=== PATIENT | male | born 1995 | race Two or more races ===

== ENCOUNTER 2023-04-27 12:44 | Outpatient (REF) | payer OTHER, SELFPAY ==
[2023-04-27 16:15] LABS: Estimated Average Glucose 94 mg/dL; Hemoglobin A1c % 4.9 % (<6.0)
[2023-04-27 16:26] LABS: Alanine Aminotransferase 98 U/L (0-40); Albumin Level 4.4 g/dL (3.5-5.0); Alkaline Phosphatase 79 U/L (39-117); Anion Gap 14 (12-20); Aspartate Amino Transferase 38 U/L (5-37); Bilirubin Total 0.7 mg/dL (0.0-1.0); Blood Urea Nitrogen 10 mg/dL (9-16); Calcium 10.5 mg/dL (8.4-10.2); Carbon Dioxide 25 mmol/L (22-29); Chloride 105 mmol/L (96-108); Cholesterol 205 mg/dL (<200); Estimated Glomerular Filt Rate > 60; Glucose Random 83 mg/dL (60-115); HDL Cholesterol 29 mg/dL (>40); LDL Cholesterol Calculated 102 mg/dL (<100); Potassium 3.7 mmol/L (3.3-5.1); Sodium 140 mmol/L (135-145); Total Protein 7.8 g/dL (6.5-8.0); Triglycerides 372 mg/dL (<150)
== END 2023-04-27 12:45 | disposition home or self-care (01) ==
LOC: HO.HHCL 12:44
PROVIDERS: Visit Provider General Practice
DX: Z13.89 Encounter for screening for other disorder (principal)
CPT/HCPCS: 36415; 80053; 80061; 83036; 84443

== ENCOUNTER 2023-09-02 10:09 | Outpatient (REF) | payer OTHER, SELFPAY ==
--- NOTE | ~2023-09-02 | XR_ITS ---
EXAMINATION: XR SHOULDER, LEFT CLINICAL INFORMATION: Pain in left shoulder COMPARISON: None available. TECHNIQUE: AP neutral, scapular Y, and axillary views of the left shoulder. FINDINGS: The bones are intact. No fracture. Glenohumeral and acromioclavicular alignment is anatomic with normal joint space. No abnormal soft tissue calcifications. XR/XR shoulder LT min 2V IMPRESSION: No bony abnormality.
== END 2023-09-02 10:10 | disposition home or self-care (01) ==
LOC: HO.HOSX 10:09
PROVIDERS: Visit Provider Physician Assistant
DX: M75.22 Bicipital tendinitis, left shoulder (principal)
CPT/HCPCS: 73030

== ENCOUNTER 2023-09-02 13:31 | Outpatient (AMB) | payer OTHER, SELFPAY ==
[2023-09-02 13:58] VITALS: BMI 38.7
--- NOTE | 2023-09-02 13:58 | MHC.OFFVIS ---
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 Patient reports pain has been presents for about a 1.5 months that came on suddenly, denies injury. He noticed his pain presented after he started a diet. States his pain has been increasing and is worse in the mornings. He describes his pain as a sharp stabbing as well as numbness in the mornings from sleeping on his shoulder. No previous tx. 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 He reports his pain presented after he started a diet to cut fats. He states he has worsening sharp stabbing pain in his left shoulder which is aggravated in the mornings, overhead reaching putting weight on his shoulder and when working out at gym. He also c/o numbness and tingling in the mornings from sleeping on his shoulder which occasional radiates down to his hand and fingers. He denies any crunching, grinding, or popping at gym as well as weakness with lifting objects. He denies any previous injury and has not had any treatment in the past. His job requires a lot of manual work with his hands. 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 Review of Systems Const All systems reviewed & are unremarkable except as noted in HPI and below Physical Exam Vital Signs: BMI result Body Mass Index 38.7 Const General: cooperative, healthy appearing, comfortable, no acute distress, well developed and alert Orientation/consciousness: patient oriented x3 HEENT Head: Yes normal to inspection, Yes normocephalic and Yes atraumatic Eyes General: appearance normal, both eyes and all related structures Resp Effort & Inspection: normal respiratory effort and able to speak in complete sentences Cardio Rate: regular rate Peripheral pulses: Peripheral pulses 2+ throughout GI Palpation (GI): Soft to palpation Skin Lesions: no lesions Rashes: no rashes Neuro General: patient oriented x3 Extrem Other: Left shoulder normal to inspection. Tenderness over the bicipital groove and along the deltoid region of the shoulder. Forward flexion to 175, external rotation to 90, internal rotation to S1. 5/5 RTC strength. Positive O'Briens. NVI. Results Reviewed Results Reviewed: Xrays were obtained in the office today and personally reviewed by me of the left shoulder show type 2 acromion Assessment & Plan Assessment & Plan (1) Biceps tendonitis on left: Code(s): M75.22 - Bicipital tendinitis, left shoulder Plan We discussed options which include PT, NSAIDs and injections. The patient will defer on the injection today and proceed with PT and NSAIDs. If symptoms persist, the patient will contact me for an injection, otherwise, PRN. Orders: Orders XR shoulder LT min 2V Today M25.512 - Pain in left shoulder PT Evaluation and Treatment Today M75.22 - Bicipital tendinitis, left shoulder Patient Instructions: Scribed for Lito Rao PA-C, by Charbel Barbosa medical record librarians teacher, on 09/02/2023 at 2:00 PM EST. I, Lito Rao PA-C, have personally reviewed and agree with the information entered by the scribe. Coding Level of Care Code New Pt Level 3 (96169) Diagnoses Biceps tendonitis on left M75.22
== END 2023-09-02 14:23 | disposition home or self-care (01) ==
PROVIDERS: Visit Provider Physician Assistant
DX: M75.22 Bicipital tendinitis, left shoulder (principal)
CPT/HCPCS: 99203

== ENCOUNTER 2023-11-17 16:00 | Outpatient (RCR) | payer OTHER, SELFPAY ==
--- NOTE | 2023-09-23 13:17 | MHC.PT.EP ---
[facility] [place] Office [place] Office [place] Office [address] [phone] F: [phone] F: [phone] F: [phone] F: [phone] Physical Therapy Plan of Care Date of Evaluation: 09/22/23 Date of Surgery: Diagnosis: LEFT Shoulder biciptal tendinitis (MD Dx) Assessment: Patient is a pleasant 27 y.o. male who is referred to PT by Lito Rao PA-C with Dx of LEFT shoulder biciptal tendinitis. PT diagnosis is LEFT shoulder subacromial impingement syndrome. Patient impairments include pain, weakness/muscle imbalances in shoulder girdle, poor postures. Patient current functional limitations are putting on shirts and jackets, showering, sleeping (numbness when sleeping on L side), reaching overhead and arm out into flexion/abd, reaching across body, reaching behind body, any overhead lifting. Patient will benefit from skilled PT to address aforementioned impairments and functional limitations to meet established goals. Frequency and Duration: The patient will be seen 2x/week for 4 weeks Short Term Goals: 2 weeks Patient demonstrates consistency and independence with HEP to self manage symptoms. 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 Patient presents with increased L shoulder middle and lower trap strength 4+/5 to improve posture to reach overhead without sxs Treatment Plan: Modalities to reduce pain, spasms and effusion. Manual therapy to restore motion and function. Therapeutic exercise to improve strength and flexibility. Neuromuscular re-education for posture and balance. Therapeutic activities to return to functional activities of daily living. Electronically signed by: Marcia Cheung, PT, DPT Please sign and return to therapist. Thank you for your referral.
--- NOTE | 2023-11-19 10:04 | MHC.PT.DC ---
[facility] [place] Office [place] Office [place] Office [address] [phone] F: [phone] F: [phone] F: [phone] F: [phone] Physical Therapy Discharge Report Diagnosis: LEFT Shoulder biciptal tendinitis ( Dx) Date of Surgery: Date of Evaluation: 09/22/23 Date of Discharge: 11/19/23 Treatments to Date: 11 Cancellations to Date: No Shows to Date: Discharge Status: Achieved Goals Improved Function Independent with HEP Discharge Summary: Nicanor comes to his last therapy session today and continued his current exercise plan with good form throughout and no onset discomfort. AROM normal all movements L shoulder. Strength in L shoulder 5/5. We educated him on importance on following his HEP and listening to his body and if something is bothersome don't continue it. Nicanor showed significant improvement noted with his SPADI. Electronically signed by: Marcia Cheung, PT, DPT Please sign and return to therapist. Thank you for your referral.
== END 2023-11-19 10:05 | disposition home or self-care (01) ==
LOC: HO.PT 16:00
PROVIDERS: PCP General Practice; Visit Provider Physician Assistant
DX: M75.22 Bicipital tendinitis, left shoulder (principal)
CPT/HCPCS: 97033; 97110; 97161; 97530

== ENCOUNTER 2024-01-12 15:45 | Outpatient (REF) | payer OTHER, SELFPAY ==
[2024-01-13 08:54] LABS: HBS Num1 2.64 mIU/mL (0-7.99); Hepatitis A Antibody IgM 0.17 Index (0-0.79); Hepatitis B Core Antibody Nonreactive (Nonreactive); Hepatitis B Surface Antigen Negative (Negative); ~HepC Num1 0.12 S/CO (0.00-0.79); ~Hepatitis A Antibody IgM Nonreactive (Nonreactive); ~Hepatitis B Surface Antibody NONREACTIVE (Nonreactive); ~Hepatitis C Antibody Nonreactive (Nonreactive)
[2024-01-15 23:53] LABS: TS Negative Control Passed; TS Panel A 0; TS Panel B 0; TS Positive Control Passed; TSpotTB Negative (Negative)
== END 2024-01-12 15:46 | disposition home or self-care (01) ==
LOC: HO.CHCLDS 15:45
PROVIDERS: Visit Provider General Practice
DX: Z00.00 Encounter for general adult medical examination without abnormal findings (principal); Z11.1 Encounter for screening for respiratory tuberculosis
CPT/HCPCS: 36415; 86481; 86704; 86706; 86709; 86787; 86803; 87340

== ENCOUNTER 2024-02-10 09:42 | Outpatient (REF) | payer OTHER, SELFPAY ==
[2024-02-12 02:09] LABS: Rubella IgG Antibody 1.91 Index
== END 2024-02-10 09:43 | disposition home or self-care (01) ==
LOC: HO.CHCLDS 09:42
PROVIDERS: Visit Provider General Practice
DX: Z00.00 Encounter for general adult medical examination without abnormal findings (principal)
CPT/HCPCS: 36415; 86735; 86762; 86765

== ENCOUNTER 2024-02-25 10:35 | Outpatient (REF) | payer OTHER, SELFPAY ==
[2024-02-25 14:46] LABS: MANUAL DIFF FLAG NO
[2024-02-25 14:57] LABS: Basophils Percent Auto 0.4 % (0-2); Eosinophils Absolute Auto 0.1 X10*3/uL (0.0-0.4); Eosinophils Percent Auto 1.3 % (0-4); Hematocrit 47.5 % (42.0-52.0); Hemoglobin 16.5 g/dl (14.0-18.0); Imm Gran Abs Auto 0.01 X10*3/uL (0.00-0.03); Imm Gran Pct Auto 0.2 % (0.0-0.4); Lymphocytes Absolute Auto 1.8 X10*3/uL (1.2-4.9); Lymphocytes Percent Auto 32.1 % (20-40); Mean Corpuscular HGB Conc 34.7 g/dl (31.0-36.0); Mean Corpuscular Hemoglobin 29.9 pg (27.0-33.0); Mean Corpuscular Volume 86.2 fL (80.0-98.0); Mean Platelet Volume 10.3 fL (9.4-12.4); Monocytes Absolute Auto 0.5 X10*3/uL (0.1-1.2); Monocytes Percent Auto 9.9 % (2-11); Neutrophils Absolute Auto 3.1 x10*3/uL (2.0-8.3); Neutrophils Percent Auto 56.1 % (45-73); Platelet Count 309 X10*3/uL (160-400); Red Blood Count 5.51 X10*6/uL (4.60-5.80); Red Cell Distribution Width 12.5 % (11.0-16.0); White Blood Count 5.5 X10*3/uL (4.8-10.8)
[2024-02-25 15:09] LABS: Anion Gap 11 (12-20); Blood Urea Nitrogen 20 mg/dL (9-16); Calcium 10.2 mg/dL (8.4-10.2); Carbon Dioxide 27 mmol/L (22-29); Chloride 104 mmol/L (96-108); Estimated Glomerular Filt Rate > 60; Glucose Random 82 mg/dL (60-115); Sodium 138 mmol/L (135-145)
== END 2024-02-25 10:36 | disposition home or self-care (01) ==
LOC: HO.CHCLDS 10:35
PROVIDERS: Visit Provider Internal Medicine
DX: K92.1 Melena (principal)
CPT/HCPCS: 36415; 80048; 85025

== ENCOUNTER 2024-07-08 09:38 | Outpatient (REF) | payer OTHER, SELFPAY ==
[2024-07-11 17:38] LABS: Rubella IgG Antibody 5.25 Index
== END 2024-07-08 09:39 | disposition home or self-care (01) ==
LOC: HO.CHCLDS 09:38
PROVIDERS: Visit Provider General Practice
DX: Z23 Encounter for immunization (principal); Z01.84 Encounter for antibody response examination
CPT/HCPCS: 36415; 86735; 86762; 86765

== ENCOUNTER 2024-10-24 13:28 | Outpatient (REF) | payer OTHER, SELFPAY ==
[2024-10-24 14:24] LABS: MANUAL DIFF FLAG NO
[2024-10-24 14:36] LABS: Basophils Percent Auto 0.5 % (0-2); Eosinophils Absolute Auto 0.2 X10*3/uL (0.0-0.4); Eosinophils Percent Auto 3.3 % (0-4); Hematocrit 44.7 % (42.0-52.0); Hemoglobin 16.2 g/dl (14.0-18.0); Imm Gran Abs Auto 0.02 X10*3/uL (0.00-0.03); Imm Gran Pct Auto 0.3 % (0.0-0.4); Lymphocytes Absolute Auto 1.9 X10*3/uL (1.2-4.9); Lymphocytes Percent Auto 32.6 % (20-40); Mean Corpuscular HGB Conc 36.2 g/dl (31.0-36.0); Mean Corpuscular Hemoglobin 30.5 pg (27.0-33.0); Mean Corpuscular Volume 84.2 fL (80.0-98.0); Mean Platelet Volume 10.3 fL (9.4-12.4); Monocytes Absolute Auto 0.5 X10*3/uL (0.1-1.2); Monocytes Percent Auto 9.4 % (2-11); Neutrophils Absolute Auto 3.1 x10*3/uL (2.0-8.3); Neutrophils Percent Auto 53.9 % (45-73); Platelet Count 285 X10*3/uL (160-400); Red Blood Count 5.31 X10*6/uL (4.60-5.80); Red Cell Distribution Width 11.9 % (11.0-16.0); White Blood Count 5.8 X10*3/uL (4.8-10.8)
--- OUTSIDE RECORDS SUMMARY | 2024-10-24 15:11 | XMS_ITS | Encounter Summary ---
Author Organization [employer] Address [address] [facility] 7t [place] [address] Care Team Providers Care Premium Service Representative Name Role Phone Meagan Frias MD Primary Care Provider [phone] Encounter Details Date Type Department Care Team (Late st Contact Info) Description 04/29/2023 Orders Only [facility] MEDICINE [address] [place], [place] [phone] Meagan Frias MD [address] [place], [place] [phone] Social History Tobacco Use Types Packs/Day Years Used Date Smoking Tobacco: Never Smokeless Tobacco: Never Alcohol Use Standard Drinks/Week Comments Never 0 (1 standard drink = 0.6 oz pur e alcohol) Depression Answer Date Recorded Patient Health Questionnaire-2 Score 0 04/24/2023 Sex and Gender Information Value Date Recorded Sex Assigned at Male 03/12/2023 11:44 AM EDT Legal Sex Male 11:43 AM EDT Gender Identity Male 03/12/2023 11:44 AM EDT Sexual Orientation Straight 03/12/2023 11 :44 AM EDT documented as of this encounter Miscellaneous Notes * Result Encounter Note - Meagan Frias MD - 04/29/2023 1:36 PM EDT Please offer vaccine appointment for Hep A and Hep B, his blood shows that he is not immune to these pathogens. His TB test was negative, if he needs that for work/school, we can give him a copy of those results. Thank you documented in this encounter Plan of Treatment Not on file documented as of this encounter Procedures Procedure Name Priority Date/Time Associated Diagnosis Comments MEASLES, MUMPS, AND RUBELLA (MMR) AB (IGG) PANEL, IMMUNE STATUS Routine 02/10/2024 9:44 AM EDT T-SPOT(R).TB Routine 01/12/2024 3:47 PM EDT HEPATITIS PANEL, GENERAL Routine 01/12/2024 3:47 PM EDT VARICELLA ZOSTER ANTIBODY, IGG Routine 01/12/2024 3:47 PM EDT documented in this encounter Results * (ABNORMAL) Measles, Mumps, and Rubella (MMR) Antibodies??(IgG) Panel, Immune Status (02/10/2024 9:44 AM EDT) Pathologist [facility] [place] Mumps Virus IgG Antibody 10.40(A) AU/mL [facility] Comment:AU/mL Interpretation ------- <9.00 Not consistent with immunity9.00-10.99 Equivocal>10.99 Consistent with immunityThe presence of mumps IgG antibody suggests immunizationor past or current infection with mumps virus. Rubella IgG Antibody 1.91 Index [facility] Comment:Index Interpretation ----- <0.90 Not consistent with immunity 0.90-0.99 Equivocal > or = 1.00 Consistent with immunityThe presence of rubella IgG antibody suggestsimmunization or past or current infection withrubella virus.THIS TEST WAS PERFORMED AT:[facility] [place] [phone] PAEZ MD Rubeola IgG (Measles) 18.70 AU/mL [facility] Comment:AU/mL Interpretation ----- <13.50 Not consistent with .50-16.49 Equivocal>16.49 Consistent with immunityThe presence of measles IgG suggests immunization orpast or current infection with measles virus.For additional information, please refer tohttp://education.[employer]/faq/NEQ849(This link is being provided for informational/educational purposes only.) 02/10/2024 9:44 AM EDT 02/10/2024 2:10 PM EDT us Meagan Frias MD LAB BLOOD ORDERABLES Final Res ult [facility] [address] [place] [address] [phone] * T-SPOT??.TB (01/12/2024 3:47 PM EDT) [facility] T Spot TB Negative Negative [facility] Comment:A negative test resu lt does not exclude the possibilityof exposure to or infection with Mycobacteriumtuberculosis (M. tuberculosis). Patients with recentexposure to TB infected individuals exhibiting anegative T-SPOT.TB result should be considered forretesting within 6 weeks or if other relevant clinicalsymptoms indicate. Results from T-SPOT.TB testing mustbe used in conjunction with each individual'sepidemiological history, current medical status,and results of other diagnostic evaluations.The T-SPOT.TB test is qualitative and results arereported as positive, borderline, or negative, giventhat the test controls perform as expected. In linewith the Centers for Disease Control and Prevention's2010 recommendation to report quantitative measurementsalongside the qualitative result, the laboratoryprovides spot counts for informational purposes only.The T-SPOT.TB test should not be interpreted as aquantitative test. TS PANEL A 0 [facility] TS PANEL B 0 [facility] Negative Control Passed [facility] Positive Control Passed [facility] Comment:For additional infor mation, please refer tohttp://education.[employer]/faq/HAK068(This link is being provided for informational/educational purposes only.)THIS TEST WAS PERFORMED AT:[id number] [place] [address]OMIXTEESOPHIA EDMONDS MD,PHD 01/12/2024 3:47 PM EDT 01/12/2024 5:59 PM EDT Meagan Frias MD LAB BLOOD ORDERABLES Final Res ult Performing Organization Address [facility] Co de Phone Number [facility] [address] [place] [address] [phone] * Varicella zoster antibody, IgG (01/12/2024 3:47 PM EDT) Pathologist [facility] [place] Varicella IgG Antibody 2888.00 index [facility] Comment:Index Interpretation --------- <135.00 Negative - Antibody not detected 135.00 - 164.99 Equivocal > or = 165.00 Positive - Antibody detected A positive result indicates that the patient has antibody to VZV but does not differentiate between an active or past infection. The clinical diagnosis must be interpreted in conjunction with the clinical signs and symptoms of the patient. This assay reliably measures immunity due to previous infection but may not be sensitive enough to detect antibodies induced by vaccination. Thus, a negative result in a vaccinated individual does not necessarily indicate susceptibility to VZV infection. A more sensitive test for vaccination-induced immunity is Varicella Zoster Virus Antibody Immunity Screen, ACIF.THIS TEST WAS PERFORMED AT:[facility] [place] [phone] PAEZ MD 01/12/2024 3:47 PM EDT 01/12/2024 5:59 PM EDT eMagan Frias MD LAB BLOOD ORDERABLES Final Res ult Performing Organization Address [facility]/ZIP Co de Phone Number [facility] [address] [place] [address] [phone] * Hepatitis Panel, General (01/12/2024 3:47 PM EDT) [facility] Hepatitis A IgM Nonreactive Nonreactive [facility] Comment:IgM antibodies to CARLISLE V not detected; does not exclude earlyacute or recovered HAV infection. ~Hepatitis B Surface Antibody NONREACTIVE Nonreactive [facility] Comment:Nonreactive: < 8.00 mIU/mL Hepatitis B Core Antibody Nonreactive Nonreactive [facility] Hepatitis C Antibody Nonreactive Nonreactive [facility] Comment:Antibodies to HCV no t detected; does not exclude early acuteHCV infection. Hepatitis B Surface Ag Negative Negative [facility] 01/12/2024 3:47 PM EDT 01/12/2024 5:59 PM EDT us Meagan Frias MD LAB BLOOD ORDERABLES Final Res ult [facility] [address] [place] [address] [phone] documented in this encounter Visit Diagnoses Not on filedocumented in this encounter Care Teams Premium Service Representative Relationship Specialty Start Date End Date Meagan Frias MD [address] [place] [phone] PCP - General Family Medicine 04/24/23 documented as of this encounter
--- OUTSIDE RECORDS SUMMARY | 2024-10-24 15:11 | XMS_ITS | Encounter Summary ---
Author Organization [employer] Address [address] [facility] [address]t [place] [address] Care Team Providers Care Food Mobile Driver Name Role Phone Meagan Frias MD Primary Care Provider [phone] Encounter Details Date Type Department Care Team (Late st Contact Info) Description 05/01/2023 Abstract [facility] MEDICINE [address] [place], [place] [phone] Meagan Frias MD [address] [place], [place] [phone] Social History Tobacco Use Types Packs/Day Years [...] AM EDT documented as of this encounter Plan of Treatment Not on file documented as of this encounter Visit Diagnoses Not on filedocumented in this encounter Care Teams Food Mobile Driver Relationship Specialty Start Date End Date Meagan Frias MD [address] [place], [place] [phone] PCP - General Family Medicine 04/24/23 documented as of this encounter
--- OUTSIDE RECORDS SUMMARY | 2024-10-24 15:11 | XMS_ITS | Encounter Summary ---
Author Organization [employer] Address [address] [facility] [address] [place] [address] Care Team Providers Care Clean Room Technician Name Role Phone Meagan Frias MD Primary Care Provider [phone] Reason for Visit * Reason Onset Date Comments Returning call 10/30/2023 Encounter Details Date Type Department Care Team ([facility] st Contact Info) Description 10/30/2023 Telephone [facility] MEDICINE [address] [place] [address] Meagan Frias MD [address] [place], [place] [phone] Returning call Social History Tobacco Use Types Packs/Day Years Used Date Smoking Tobacco: Never Smokeless Tobacco: Never Alcohol Use Standard Drinks/Week Comments Never 0 (1 standard drink = 0.6 oz pur e alcohol) Housing Stability Answer Date Recorded What is your housing situation today? I have jeff salas 06/16/[address] you li ve. Do you have problems with any of the following? None of the above 06/16/2023 Food Insecurity Answer Date Recorded Within the past 12 months, y ou worried that your food would run out before you got money to buy more: Never True 06/16/2023 Within the past 12 months,th e food you bought just didn't last and you didn't have enough money to get more: Never True Transportation Answer Date Recorded In the past 12 months, has l ack of transportation kept you from medical appts, meetings, work or from getting things needed for daily living? Yes, it has kept me from medical appointments or getting medications. 05/25/2023 Utilities Answer Date Recorded In the past 12 months, has t he electric, gas, oil or water company threatened to shut off services in your home? No 06/16/2023 Depression Answer Date Recorded Patient Health Questionnaire-2 Score 0 04/24/2023 Sex and Gender Information Value Date Recorded Sex Assigned at Male 03/12/2023 11:44 AM EDT Legal Sex Male 11:43 AM EDT Gender Identity Male 03/12/2023 11:44 AM EDT Sexual Orientation Straight 03/12/2023 11 :44 AM EDT documented as of this encounter Miscellaneous Notes * Telephone Encounter - Ilan Deng - 10/30/2023 11:21 AM EDT Tc from pt stated received a call possibly regarding yesterday's visit with Dr. Vazquez, continuity writer didn't see anything tasked. documented in this encounter Plan of Treatment Not on file documented as of this encounter Visit Diagnoses Not on filedocumented in this encounter Care Teams Clean Room Technician Relationship Specialty Start Date End Date Meagan Frias MD [address] [place] [phone] PCP - General Family Medicine 04/24/23 documented as of this encounter
--- OUTSIDE RECORDS SUMMARY | 2024-10-24 15:11 | XMS_ITS | Clinical Summary ---
Author Organization [employer] Address [address] [facility] [address] [place] [address] Care Team Providers Care Agile Scrum Coach Name Role Phone Meagan Frias MD Primary Care Provider Allergies No known active allergies Medications omega-3 (Fish Oil) 1000 MG capsule TAKE 1 CAPSULE (500 MG) BY MOUTH IN THE MORNING. 90 capsule 3 04/29/2023 Active Blood Pressure Monitoring (Adult Blood Pressure Cuff Lg) kitIndications: Elevated blood pressure reading 1 each in the morning. 1 kit 09/25/2023 Active losartan (Cozaar) 25 MG tablet Take 1 tablet (25 mg) by mouth in the morning. 30 tablet 11 10/29/2023 Active Multiple Vitamins-Minera ls (B complex-vitamin C-vitamin E-zinc) tablet Take 1 tablet by mouth Once per day. Active Active Problems Problem Noted Date Diagnosed Date Other fatigue 10/24/2024 Elevated blood pressure reading 09/29/2023 Assessment & Plan (09/29/2023 9:40 PM EST): BP monitor sent to pharmacy To check every few days, if readings are consistently >140/90, to notify triage nurse so that we can start NADINE or CCB Pain in left acromioclavicular joint 08/12/2023 Assessment & Plan (08/12/2023 4:34 PM EST): AC joint pain with decr internal rotation, send to ortho and order X ray. Scheduled f/up with PCP. If symptoms not improving and he does indeed do PT, we can consider MRI imaging of his rotator cuff. Flexural eczema 04/24/2023 Assessment & Plan (04/24/2023 12:48 PM EDT): Triamcinolone mixed with emollient cream Class 2 obesity in adult 04/24/2023 Routine history and physical examination of adul t 04/24/2023 Assessment & Plan (04/24/2023 12:50 PM EDT): Screen for DM2 based on symptoms, exam findings, and FH (mother) Screen for dyslipidemia, thyroid based on weight Encounters Date Type Department Care Team Description 10/24/2024 1:00 PM EDT Office Visit [facility] [address] [place] [address] Juwan Bustos MD Primary hypertension (Primary Dx); Other fatigue; Dietary counseling; Exercise counseling; Class 3 severe obesity due to excess calories with serious comorbidity and body mass index (BMI) of 40.0 to 44.9 in adult ([facility]) 10/24/2024 Travel from Last 3 Months Immunizations Name Administration Dates Next Due Hep B, adult 01/15/2024 MMR 04/05/2024 Pfizer Covid-19 Vaccine 12+ 01/15/2024 Tdap 01/21/2024 Social History Tobacco Use Types Packs/Day Years Used Date Smoking Tobacco: Never Smokeless Tobacco: Never Tobacco Cessation:Counseling Given: Not Answered Alcohol Use Standard Drinks/Week Comments Never 0 [...] Orientation Straight 03/12/2023 11 :44 AM EDT Last Filed Vital Signs Vital Sign Reading Time Taken Comments Blood Pressure 149/70 10/24/2024 1:09 PM EDT Pulse 80 10/24/2024 1:09 PM EDT Temperature 36.7 ??C (98 ??F) 10/24/2024 1:09 PM EDT Respiratory Rate 20 10/24/2024 1:09 PM EDT Oxygen Saturation 98% 10/24/2024 1:09 PM EDT Inhaled Oxygen Concentration - - Weight 115 kg (253 lb) 10/24/2024 1:09 PM EDT Height 167.6 cm (5' 6 ) 10/24/2024 1:09 PM EDT Body Mass Index 40.84 10/24/2024 1:09 PM EDT Plan of Treatment Health Maintenance Due Date Last Done Comments HIV Screening 1994 Alcohol/Substance Use Screening 2006 Family Planning (PISQ) 2009 Hepatitis B Vaccines (2 of 3 - 19+ 3-dose series) 02/12/2024 01/15/2024 COVID-19 Vaccine (2 - 2023-2 5 season) 2024 01/15/2024 Influenza Vaccine (#1) 2024 06/14/2019 Depression Screening 04/24/2024 04/24/2023, 04/24/2023 SDOH Screening 04/24/2024 04/24/2023 Tobacco Screening 10/24/2025 10/24/2024 Lipid Panel 04/27/2028 04/27/2023 DTaP/Tdap/Td Vaccines (2 - T d or Tdap) 01/20/2034 01/21/2024 Zoster Vaccines (1 of 2) 2044 RSV Patients and Patients Aged 60 years or older (1 - 1-dose 75+ series) 2069 Pneumococcal Vaccine: Pediatrics (0 to 5 Years) and At-Risk Patients (6 to 49) Years) Aged Out 06/14/2019 No longer eligible b ased on patient's age to complete this topic Hepatitis C Screening Completed 01/12/2024 HIB Vaccines Aged Out No longer eligi ble based on patient's age to complete this topic HPV Vaccines Aged Out No longer eligi ble based on patient's age to complete this topic Hepatitis A Vaccines Aged Out No long er eligible based on patient's age to complete this topic IPV Vaccines Aged Out No longer eligi ble based on patient's age to complete this topic Meningococcal Vaccine Aged Out No rigoberto fredis eligible based on patient's age to complete this topic RSV under 20 months Aged Out No longe r eligible based on patient's age to complete this topic Rotavirus Vaccines Aged Out No longer eligible based on patient's age to complete this topic Procedures Procedure Name Priority Date/Time Associated Diagnosis Comments CBC WITH AUTO DIFFERENTIAL Routine 10/24/2024 1:30 PM EDT Primary hypertension Other fatigue HEPATITIS PANEL, GENERAL Routine 01/12/2024 3:47 PM EDT LIPID PANEL, STANDARD Routine 04/27/2023 12:50 PM EDT Class 2 obesity in adult, unspecified BMI, unspecified obesity type, unspecified whether serious comorbidity present from Last 3 Months or Most Recently Relevant to Health Maintenance Results * (ABNORMAL) CBC auto differential (10/24/2024 1:30 PM EDT) White Blood Count 5.8 4.8 - 10.8 X10*3/uL [facility] Red Blood Count 5.31 4.60 - 5.80 X10*6/uL [facility] Hemoglobin 16.2 14.0 - 18.0 g/dl [facility] Hematocrit 44.7 42.0 - 52.0 % [facility] Mean Corpuscular Volume 84.2 80.0 - 98.0 fL [facility] Mean Corpuscular Hemoglobin 30.5 27.0 - 33.0 pg [facility] Mean Corpuscular HGB Conc 36.2(H) 31.0 - 36.0 g/dl [facility] Red Cell Distribution Width 11.9 11.0 - 16.0 % [facility] Platelet Count 285 160 - 400 X10*3/uL [facility] Mean Platelet Volume 10.3 9.4 - 12.4 fL [facility] Neutrophils Percent Auto 53.9 45 - 73 % [facility] Imm Gran Pct Auto 0.3 0.0 - 0.4 % [facility] Lymphocytes Percent Auto 32.6 20 - 40 % [facility] Monocytes Percent Auto 9.4 2 - 11 % [facility] Eosinophils Percent Auto 3.3 0 - 4 % [facility] Basophils Percent Auto 0.5 0 - 2 % [facility] NRBC Pct Auto 0.0 0.0 - 0.2 /100WBC [facility] Neutrophils Absolute Auto 3.1 2.0 - 8.3 x10*3/uL [facility] Imm Gran Abs Auto 0.02 0.00 - 0.03 X10*3/uL [facility] Lymphocytes Absolute Auto 1.9 1.2 - 4.9 X10*3/uL [facility] Monocytes Absolute Auto 0.5 0.1 - 1.2 X10*3/uL [facility] Eosinophils Absolute Auto 0.2 0.0 - 0.4 X10*3/uL [facility] Basophils Absolute Auto 0.0 0.0 - 0.2 X10*3/uL [facility] NRBC Abs Auto 0.000 0.0 - 0.012 X10*3/uL [facility] Blood Venous blood specimen / Unknown 10/24/2024 1:30 PM EDT 10/24/2024 2:18 PM EDT us Juwan Bustos MD LAB BLOOD ORDERABLES Final Result [facility] [address] [place] [address] [phone] * Hepatitis Panel, General (01/12/2024 3:47 PM EDT) Hepatitis A IgM Nonreactive Nonreactive [facility] Comment:IgM antibodies to CARLISLE V not detected; does not exclude earlyacute or recovered HAV infection. ~Hepatitis B Surface Antibody NONREACTIVE Nonreactive [facility] Comment:Nonreactive: < 8.00 mIU/mL Hepatitis B Core Antibody Nonreactive Nonreactive [facility] Hepatitis C Antibody Nonreactive Nonreactive [facility] Comment:Antibodies to HCV no t detected; does not exclude early acuteHCV infection. Hepatitis B Surface Ag Negative Negative [facility] 01/12/2024 3:47 PM EDT 01/12/2024 5:59 PM EDT us Meagan Frias MD LAB BLOOD ORDERABLES Final Res ult [facility] [address] [place] [phone] * (ABNORMAL) Lipid Panel, Standard (04/27/2023 12:50 PM EDT) Triglycerides 372(H) <150 mg/dL [facility] Comment:Desirable Triglyceri de: less than 150 mg/dLBorderline High Triglyceride 150-199 mg/dLHigh Triglyceride: 200-499 mg/dLVery High Triglyceride: greater than or equal to 5OO mg/dL Cholesterol 205(H) <200 mg/dL [facility] Comment:Desirable Cholestero l: less than 200 mg/dLBorderline High Cholesterol: 200-239 mg/dLHigh Cholesterol: greater than 239 mg/dL LDL Cholesterol Calculated 102(H) <100 mg/dL [facility] Comment:Desirable LDL: less than 100 mg/dLNear Optimal/Above Optimal LDL: 110- 129 mg/dLBorderline High LDL: 130-159 mg/dLHigh LDL: 160-189 mg/dLVery High LDL: greater than or equal to 190 mg/dL HDL Cholesterol 29(L) >40 mg/dL [facility] Comment:Desirable HDL: great er than 40 mg/dL Note: This HDL assay may give artificially low results in patients with liver disease. Blood Venous blood specimen / Unknown 04/27/2023 12:50 PM EDT 04/27/2023 3:53 PM EDT us Meagan Frias MD LAB BLOOD ORDERABLES Final Res ult [facility] [address] [place] [phone] [phone] from Last 3 Months or Most Recently Relevant to Health Maintenance Insurance [facility] Care Teams Agile Scrum Coach Relationship Specialty Start Date End Date Meagan Frias MD [address] [place] [address] PCP - General Family Medicine 04/24/23
--- OUTSIDE RECORDS SUMMARY | 2024-10-24 15:11 | XMS_ITS | Encounter Summary ---
Author Organization [employer] Address [address] [facility] [place] [address] Care Team Providers Care French Cord Binder Name Role Phone Meagan Frias MD Primary Care Provider [phone] Encounter Details Date Type Department Care Team (Latest Contact Info) Description 10/24/2024 Travel Social History Tobacco Use Types Packs/Day Years [...] on filedocumented in this encounter Care Teams French Cord Binder Relationship Specialty Start Date End Date Meagan Frias MD [address] [place] [phone] PCP - General Family Medicine 04/24/23 documented as of this encounter
[2024-10-24 15:15] LABS: Magnesium 2.1 mg/dL (1.6-2.6)
[2024-10-24 15:23] LABS: TSH reflex Free T4 1.14 uIU/mL (0.32-4.0); Vitamin D 25-OH Total 19.4 ng/mL (>30)
[2024-10-24 15:44] LABS: Folate 9.6 ng/mL (> or = 4.0); Vitamin B12 1586 pg/mL (200-900)
[2024-10-31 23:44] LABS: Testosterone, Total 272 ng/dL (250-1100)
== END 2024-10-24 13:29 | disposition home or self-care (01) ==
LOC: HO.CHCLDS 13:28
PROVIDERS: Visit Provider Internal Medicine
DX: I10 Essential (primary) hypertension (principal); R53.83 Other fatigue
CPT/HCPCS: 36415; 82306; 82607; 82746; 83735; 84403; 84443; 85025

== ENCOUNTER 2024-10-25 10:50 | Outpatient (REF) | payer OTHER, SELFPAY ==
--- OUTSIDE RECORDS SUMMARY | 2024-10-25 13:13 | XMS_ITS | Encounter Summary ---
Author Organization [employer] Address [address] [facility] [address] [place] [address] Care Team Providers Care Residential Lawn Specialist Name Role Phone Meagan Frias MD Primary Care Provider [phone] Reason for Visit * Reason Onset Date Comments Returning call 10/30/2023 Encounter Details Date Type Department Care Team ([facility] st Contact Info) Description 10/30/2023 Telephone [facility] [address] [place] [address] Meagan Frias MD [address] [place], [place] [phone] Returning call Social History Tobacco Use Types Packs/Day Years Used Date Smoking Tobacco: Never Smokeless Tobacco: Never Alcohol Use Standard Drinks/Week Comments Never 0 (1 standard drink = 0.6 oz pur e alcohol) Housing Stability Answer Date Recorded What is your housing situation today? I have jeffsathya salas 06/16/[address] you [...] possibly regarding yesterday's visit with Dr. Vazquez, parts data writer didn't see anything tasked. documented in this encounter Plan of Treatment Not on file documented as of this encounter Visit Diagnoses Not on filedocumented in this encounter Care Teams Residential Lawn Specialist Relationship Specialty Start Date End Date Meagan Frias MD [address] [place] [phone] PCP - General Family Medicine 04/24/23 documented as of this encounter
--- OUTSIDE RECORDS SUMMARY | 2024-10-25 13:13 | XMS_ITS | Encounter Summary ---
Author Organization [employer] Address [address] [facility] [address] [facility] [address] [place] [address] Care Team Providers Care Physical Therapy Nurse Name Role Phone Meagan Frias MD Primary Care Provider [phone] Encounter Details Date Type Department Care Team [...] on filedocumented in this encounter Care Teams Physical Therapy Nurse Relationship Specialty Start Date End Date Meagan Frias MD [address] [place] [phone] PCP - General Family Medicine 04/24/23 documented as of this encounter
--- OUTSIDE RECORDS SUMMARY | 2024-10-25 13:13 | XMS_ITS | Encounter Summary ---
Author Organization [employer] Address [address] [facility] [address] [place] [address] Care Team Providers Care Technical Publications Manager Name Role Phone Meagan Frias MD Primary Care Provider [phone] Encounter Details Date Type Department Care Team (Late st Contact Info) Description 04/29/2023 Orders Only [facility] [address] [place], [place] [phone] Meagan Frias MD [address] [place], [place] [phone] Social History Tobacco Use Types Packs/Day Years [...] Immune Status (02/10/2024 9:44 AM EDT) Pathologist [facility] Mumps Virus IgG Antibody 10.40(A) AU/mL [facility] Comment:AU/mL Interpretation ------- <9.00 Not consistent with immunity9.00-10.99 Equivocal>10.99 Consistent with immunityThe presence of mumps IgG antibody suggests immunizationor past or current infection with mumps virus. Rubella IgG Antibody 1.91 Index [facility] Comment:Index Interpretation ----- <0.90 Not consistent with immunity 0.90-0.99 Equivocal > or = 1.00 Consistent with immunityThe presence of rubella IgG antibody suggestsimmunization or past or current infection withrubella virus.THIS TEST WAS PERFORMED AT:[employer] [place] [phone] PAEZ MD Rubeola IgG (Measles) 18.70 AU/mL [facility] Comment:AU/mL Interpretation ----- <13.50 Not consistent with ygzyvpns52.50-16.49 Equivocal>16.49 Consistent with immunityThe presence of measles IgG suggests immunization orpast or current infection with measles virus.For additional information, please refer tohttp://education.[employer]/faq/QRN390(This link is being provided for informational/educational purposes only.) 02/10/2024 9:44 AM EDT 02/10/2024 2:10 PM EDT us Meagan Frias MD LAB BLOOD ORDERABLES Final Res ult [facility] [address] [place] [address] [phone] * T-SPOT??.TB (01/12/2024 3:47 PM EDT) [facility] T Spot TB Negative Negative [facility] Comment:A negative test resu lt [...] as aquantitative test. TS PANEL A 0 [facility] TS PANEL B 0 [facility] Negative Control Passed [facility] Positive Control Passed [facility] Comment:For additional infor mation, please refer tohttp://education.[employer]/faq/CSF327(This link is being provided for informational/educational purposes only.)THIS TEST WAS PERFORMED AT:[employer] [place] [phone] EDMONDS MD,PHD 01/12/2024 3:47 PM EDT 01/12/2024 5:59 PM EDT Meagan Frias MD LAB BLOOD ORDERABLES Final Res ult Performing Organization Address [facility] Co de Phone Number [facility] [address] [place] [address] [phone] * Varicella zoster antibody, IgG (01/12/2024 3:47 PM EDT) Pathologist [facility] Varicella IgG Antibody 2888.00 index [facility] Comment:Index Interpretation --------- <135.00 Negative [...] Antibody Immunity Screen, ACIF.THIS TEST WAS PERFORMED AT:[facility] [place] [phone] PAEZ MD 01/12/2024 3:47 PM EDT 01/12/2024 5:59 PM EDT Meagan Frias MD LAB BLOOD ORDERABLES Final Res ult Performing Organization Address [facility]/ZIP Co de Phone Number [facility] [address] [place] [phone] * Hepatitis Panel, General (01/12/2024 3:47 PM EDT) [facility] Hepatitis A IgM Nonreactive Nonreactive [facility] Comment:IgM antibodies to CARLISLE V not detected; does not exclude earlyacute or recovered HAV infection. ~Hepatitis B Surface Antibody NONREACTIVE Nonreactive [facility] Comment:Nonreactive: < 8.00 mIU/mL Hepatitis B Core Antibody Nonreactive Nonreactive [facility] Hepatitis C Antibody Nonreactive Nonreactive [facility] Comment:Antibodies to HCV no t detected; does not exclude early acuteHCV infection. Hepatitis B Surface Ag Negative Negative [facility] 01/12/2024 3:47 PM EDT 01/12/2024 5:59 PM EDT us Meagan Frias MD LAB BLOOD ORDERABLES Final Res ult [facility] [address] [place] [phone] documented in this encounter Visit Diagnoses Not on filedocumented in this encounter Care Teams Technical Publications Manager Relationship Specialty Start Date End Date Meagan Frias MD [address] [place] [phone] PCP - General Family Medicine 04/24/23 documented as of this encounter
--- OUTSIDE RECORDS SUMMARY | 2024-10-25 13:13 | XMS_ITS | Clinical Summary ---
Author Organization [employer] Address [address] [facility] 7[address] [place] [address] Care Team Providers Care Lecturer In Marketing Name Role Phone Meagan Frias MD Primary Care Provider [phone] Allergies No known active allergies Medications omega-3 [...] Description 10/24/2024 1:00 PM EDT Office Visit [facility] [address] [place] [address] Juwan Bustos MD Primary hypertension (Primary Dx); Other fatigue; Dietary counseling; Exercise counseling; Class 3 severe obesity due to excess calories with serious comorbidity and body mass index (BMI) of 40.0 to 44.9 in adult ([facility]) 10/24/2024 Travel from Last 3 Months [...] Procedure Name Priority Date/Time Associated Diagnosis Comments VITAMIN B12/FOLATE, SERUM PANEL Routine 10/24/2024 1:50 PM EDT Primary hypertension Other fatigue MAGNESIUM Routine 10/24/2024 1:30 PM EDT Primary hypertension Other fatigue VITAMIN D,25-OH,TOTAL,IA Routine 10/24/2024 1:30 PM EDT Primary hypertension Other fatigue TSH W/REFLEX TO FT4 Routine 10/24/2024 1 :30 PM EDT Primary hypertension Other fatigue CBC WITH AUTO DIFFERENTIAL Routine 10/24/2024 1:30 PM EDT Primary hypertension Other fatigue HEPATITIS PANEL, GENERAL Routine 01/12/2024 3:47 PM EDT LIPID PANEL, STANDARD Routine 04/27/2023 12:50 PM EDT Class 2 obesity in adult, unspecified BMI, unspecified obesity type, unspecified whether serious comorbidity present from Last 3 Months or Most Recently Relevant to Health Maintenance Results * (ABNORMAL) Vitamin B12/Folate, Serum Panel (10/24/2024 1:50 PM EDT) Vitamin B12 1,586(H) 200 - 900 pg/mL [facility] Comment:NORMAL 200-900 PG/ML INDETERMINATE 160-199 PG/ML DEFICIENT < 160 PG/ML Folate 9.6 > or = 4.0 ng/mL [facility] Comment:Reference Values:> o r = 4.0 ng/mL< 4.0 ng/mL suggests folate deficiency Methotrexate, aminopterin and folinic acid(leucovorin) are chemotherapeutic agents whose molecularstructures are similar to folate; therefore, the Architectfolate assay cannot be used for patients using these drugs. Blood Venous blood specimen / Unknown 10/24/2024 1:50 PM EDT 10/24/2024 2:18 PM EDT us Juwan Bustos MD LAB BLOOD ORDERABLES Final Result [facility] [address] [place] [phone] * (ABNORMAL) Vitamin D, 25-Hydroxy, Total, Immunoassay (10/24/2024 1:30 PM EDT) Pathologist [facility] Vitamin D 25-OH Total 19.4(L) >30 ng/mL [facility] Comment:Health Based Referen ce Values*< 20 ng/mL Pzfldhqts31-59 ng/mL Insufficient> 30 ng/mL Sufficient*Gian VAZQUEZ. N Engl J Med. 2007;357:266-280Care must be taken in interpreting Vitamin D results fromdifferent laboratories and methodologies. Published datademonstrated that results from patients undergoinghemodialysis may show a negative bias when tested withvarious automated 25-OH vitamin D assays when compared toLC-MS/MS.When testing samples from patients whose predominant form ofVitamin D is Vitamin D2, such as patients receiving VitaminD2 supplementation, results that are subtherapeutic shouldbe confirmed with another method such as LC-MS/MS. Blood Venous blood specimen / Unknown 10/24/2024 1:30 PM EDT 10/24/2024 2:18 PM EDT us Juwan Bustos MD LAB BLOOD ORDERABLES Final Result Performing Organization Address [facility]/ZIP Co de Phone Number [facility] [address] [place] [phone] * TSH W/Reflex to FT4 (10/24/2024 1:30 PM EDT) TSH reflex Free T4 1.14 0.32 - 4.0 uIU/mL [facility] Blood Venous blood specimen / Unknown 10/24/2024 1:30 PM EDT 10/24/2024 2:18 PM EDT us Juwan Bustos MD LAB BLOOD ORDERABLES Final Result Performing Organization Address [facility] Co de Phone Number [facility] [address] [place] [phone] * (ABNORMAL) CBC auto differential (10/24/2024 1:30 PM EDT) White Blood Count 5.8 4.8 - 10.8 X10*3/uL [facility] Red Blood Count 5.31 4.60 - 5.80 X10*6/uL [facility] Hemoglobin 16.2 14.0 - 18.0 g/dl [facility] Hematocrit 44.7 42.0 - 52.0 % [facility] Mean Corpuscular Volume 84.2 80.0 - 98.0 fL [facility] Mean Corpuscular Hemoglobin 30.5 27.0 - 33.0 pg [facility] Mean Corpuscular HGB Conc 36.2(H) 31.0 - 36.0 g/dl [facility] Red Cell Distribution Width 11.9 11.0 - 16.0 % [facility] Platelet Count 285 160 - 400 X10*3/uL [facility] Mean Platelet Volume 10.3 9.4 - 12.4 fL [facility] Neutrophils Percent Auto 53.9 45 - 73 % [facility] Imm Gran Pct Auto 0.3 0.0 - 0.4 % [facility] Lymphocytes Percent Auto 32.6 20 - 40 % [facility] Monocytes Percent Auto 9.4 2 - 11 % [facility] Eosinophils Percent Auto 3.3 0 - 4 % [facility] Basophils Percent Auto 0.5 0 - 2 % [facility] NRBC Pct Auto 0.0 0.0 - 0.2 /100WBC [facility] Neutrophils Absolute Auto 3.1 2.0 - 8.3 x10*3/uL [facility] Imm Gran Abs Auto 0.02 0.00 - 0.03 X10*3/uL [facility] Lymphocytes Absolute Auto 1.9 1.2 - 4.9 X10*3/uL [facility] Monocytes Absolute Auto 0.5 0.1 - 1.2 X10*3/uL [facility] Eosinophils Absolute Auto 0.2 0.0 - 0.4 X10*3/uL [facility] Basophils Absolute Auto 0.0 0.0 - 0.2 X10*3/uL [facility] NRBC Abs Auto 0.000 0.0 - 0.012 X10*3/uL [facility] Blood Venous blood specimen / Unknown 10/24/2024 1:30 PM EDT 10/24/2024 2:18 PM EDT Juwan Bustos MD LAB BLOOD ORDERABLES Final Result [facility] [address] [place] [phone] * Magnesium (10/24/2024 1:30 PM EDT) Magnesium 2.1 1.6 - 2.6 mg/dL [facility] Comment:Marked Lipemia. Inte rpret result with caution. Blood Venous blood specimen / Unknown 10/24/2024 1:30 PM EDT 10/24/2024 2:18 PM EDT us Juwan Bustos MD LAB BLOOD ORDERABLES Final Result Performing Organization Address [facility] Co de Phone Number [facility] [address] [place] [phone] * Hepatitis Panel, General (01/12/2024 3:47 PM EDT) Pathologist [facility] Hepatitis A IgM Nonreactive Nonreactive [facility] Comment:IgM antibodies to CARLISLE V not detected; does not exclude earlyacute or recovered HAV infection. ~Hepatitis B Surface Antibody NONREACTIVE Nonreactive [facility] Comment:Nonreactive: < 8.00 mIU/mL Hepatitis B Core Antibody Nonreactive Nonreactive [facility] Hepatitis C Antibody Nonreactive Nonreactive [facility] Comment:Antibodies to HCV no t detected; does not exclude early acuteHCV infection. Hepatitis B Surface Ag Negative Negative [facility] 01/12/2024 3:47 PM EDT 01/12/2024 5:59 PM EDT us Meagan Frias MD LAB BLOOD ORDERABLES Final Res ult Performing Organization Address [facility] Co de Phone Number [facility] [address] [place] [phone] * (ABNORMAL) Lipid Panel, Standard (04/27/2023 12:50 PM EDT) Triglycerides 372(H) <150 mg/dL [facility] Comment:Desirable Triglyceri de: less than 150 mg/dLBorderline High Triglyceride 150-199 mg/dLHigh Triglyceride: 200-499 mg/dLVery High Triglyceride: greater than or equal to 5OO mg/dL Cholesterol 205(H) <200 mg/dL [facility] Comment:Desirable Cholestero l: less than 200 mg/dLBorderline High Cholesterol: 200-239 mg/dLHigh Cholesterol: greater than 239 mg/dL LDL Cholesterol Calculated 102(H) <100 mg/dL [facility] Comment:Desirable LDL: less than 100 mg/dLNear Optimal/Above Optimal LDL: 110- 129 mg/dLBorderline High LDL: 130-159 mg/dLHigh LDL: 160-189 mg/dLVery High LDL: greater than or equal to 190 mg/dL HDL Cholesterol 29(L) >40 mg/dL [facility] Comment:Desirable HDL: great er than 40 mg/dL Note: This HDL assay may give artificially low results in patients with liver disease. Blood Venous blood specimen / Unknown 04/27/2023 12:50 PM EDT 04/27/2023 3:53 PM EDT us Meagan Frias MD LAB BLOOD ORDERABLES Final Res ult [facility] [address] [place] [phone] from Last 3 Months or Most Recently Relevant to Health Maintenance Insurance [facility] , [address] [place] [address] Care Teams Lecturer In Marketing Relationship Specialty Start Date End Date Meagan Frias MD [address] [place] [address] PCP - General Family Medicine 04/24/23
--- OUTSIDE RECORDS SUMMARY | 2024-10-25 13:13 | XMS_ITS | Encounter Summary ---
Author Organization [employer] Address [address] [facility] [address] [place] [address] Care Team Providers Care Clinical Nurse Specialist Name Role Phone Meagan Frias MD Primary Care Provider [phone] Reason for Visit * Reason Comments Fatigue Encounter Details Date Type Department Care Team ([facility] st Contact Info) Description 10/24/2024 1:00 PM EDT Office Visit [facility] [address] [place], [place] [phone] Juwan Bustos MD [address] [place], [place] [phone] Primary hypertension (Primary Dx); Other fatigue; Dietary counseling; Exercise counseling; Class 3 severe obesity due to excess calories with serious comorbidity and body mass index (BMI) of 40.0 to 44.9 in adult (CMS/HCC) Social History Tobacco Use Types Packs/Day Years [...] AM EDT documented as of this encounter Last Filed Vital Signs Vital Sign Reading [...] Mass Index 40.84 10/24/2024 1:09 PM EDT documented in this encounter Progress Notes * Juwan Bustos MD - 10/24/2024 1:00 PM EDT Subjective Patient ID: Nicanor Andrade is a 28 y.o. male who presents for Fatigue. Fatigue The current episode started more than 1 month ago. Associated symptoms include fatigue. Pertinent negatives include no abdominal pain, anorexia, arthralgias, change in bowel habit, chest pain, chills, congestion, coughing, diaphoresis, fever, headaches, joint swelling, myalgias, nausea, neck pain, numbness, rash, sore throat, swollen glands, urinary symptoms, vertigo, visual change, vomiting or weakness. Patient denies feeling depressed. Has recently started to make some lifestyle changes and has been eating more healthy. No reported fever. Patient Active Problem List Diagnosis Flexural eczema Class 2 obesity in adult Routine history and physical examination of adult Pain in left acromioclavicular joint Elevated blood pressure reading Other fatigue Current Outpatient Medications on File Prior to Visit Medication Sig Dispense Refill Blood Pressure Monitoring (Adult Blood Pressure Cuff Lg) kit 1 each in the morning. 1 kit 0 losartan (Cozaar) 25 MG tablet Take 1 tablet (25 mg) by mouth in the morning. 30 tablet 11 Multiple Vitamins-Minerals (B complex-vitamin C-vitamin E-zinc) tablet Take 1 tablet by mouth Once per day. omega-3 (Fish Oil) 1000 MG capsule TAKE 1 CAPSULE (500 MG) BY MOUTH IN THE MORNING. 90 capsule 3 No current facility-administered medications on file prior to visit. No Known Allergies Review of Systems Constitutional: Positive for fatigue. Negative for chills, diaphoresis and fever. HENT: Negative for congestion and sore throat. Respiratory: Negative for cough. Cardiovascular: Negative for chest pain. Gastrointestinal: Negative for abdominal pain, anorexia, change in bowel habit, nausea and vomiting. Musculoskeletal: Negative for arthralgias, joint swelling, myalgias and neck pain. Skin: Negative for rash. Neurological: Negative for vertigo, weakness, numbness and headaches. Objective Physical Exam Constitutional: General: He is not in acute distress. Appearance: Normal appearance. He is obese. He is not ill-appearing, toxic- appearing or diaphoretic. Cardiovascular: Rate and Rhythm: Normal rate. Pulmonary: Effort: Pulmonary effort is normal. Neurological: General: No focal deficit present. Mental Status: He is alert. Psychiatric: Mood and Affect: Mood normal. Assessment/Plan Diagnoses and all orders for this visit: Primary hypertension Comments: Uncontrolled Patient instructed to check the blood pressure daily Keep the log for discuss in a week or so. Orders: - CBC auto differential; Future - TSH W/Reflex to FT4; Future - Vitamin D, 25-Hydroxy, Total, Immunoassay; Future - Vitamin B12/Folate, Serum Panel; Future - Magnesium; Future - Testosterone, Total, males (Adult), IA; Future Other fatigue - CBC auto differential; Future - TSH W/Reflex to FT4; Future - Vitamin D, 25-Hydroxy, Total, Immunoassay; Future - Vitamin B12/Folate, Serum Panel; Future - Magnesium; Future - Testosterone, Total, males (Adult), IA; Future Dietary counseling Exercise counseling Class 3 severe obesity due to excess calories with serious comorbidity and body mass index (BMI) of40.0 to 44.9 in adult ([facility]) Dietary Recommendations: Fruits, vegetables, whole grains, protein foods, and fat-free or low-fat dairy products are healthychoices. Eat different types of protein foods in your diet. This can include seafood, lean meats, poultry, beans, peas, lentils, nuts, seeds, soy products, and eggs. Limit foods and beverages higher in added sugars, saturated fat, and sodium. Exercise Recommendations: At least 150 minutes of moderate-intensity physical activity per week, or an equivalent combinationof moderate- and vigorous-intensity activity documented in this encounter Plan of Treatment Scheduled Orders Name Type Priority Associated Diagnoses Orde r Schedule Testosterone, Total, males (Adult), IA Lab Routine Primary hypertension Other fatigue Expected: 10/24/2024, Expires: 10/24/2025 documented as of this encounter Procedures Procedure Name Priority Date/Time Associated Diagnosis Comments VITAMIN B12/FOLATE, SERUM PANEL Routine 10/24/2024 1:50 PM EDT Primary hypertension Other fatigue VITAMIN D,25-OH,TOTAL,IA Routine 10/24/2024 1:30 PM EDT Primary hypertension Other fatigue TSH W/REFLEX TO FT4 Routine 10/24/2024 1 :30 PM EDT Primary hypertension Other fatigue CBC WITH AUTO DIFFERENTIAL Routine 10/24/2024 1:30 PM EDT Primary hypertension Other fatigue MAGNESIUM Routine 10/24/2024 1:30 PM EDT Primary hypertension Other fatigue documented in this encounter Results * (ABNORMAL) Vitamin B12/Folate, Serum Panel (10/24/2024 1:50 PM EDT) Vitamin B12 1,586(H) 200 - 900 pg/mL [facility] Comment:NORMAL 200-900 PG/ML INDETERMINATE 160-199 PG/ML DEFICIENT < 160 PG/ML Folate 9.6 > or = 4.0 ng/mL [facility] Comment:Reference Values:> o r = 4.0 [...] BLOOD ORDERABLES Final Result Performing Organization Address [facility]/ZIP Co de Phone Number [facility] [address] [place] [phone] * Magnesium (10/24/2024 1:30 PM EDT) Magnesium 2.1 1.6 - 2.6 mg/dL [facility] Comment:Marked Lipemia. Inte rpret result with caution. Blood Venous blood specimen / Unknown 10/24/2024 1:30 PM EDT 10/24/2024 2:18 PM EDT us Juwan Bustos MD LAB BLOOD ORDERABLES Final Result Performing Organization Address [facility] Co de Phone Number [facility] [address] [place] [phone] * (ABNORMAL) Vitamin D, 25-Hydroxy, Total, Immunoassay (10/24/2024 1:30 PM EDT) Vitamin D 25-OH Total 19.4(L) >30 ng/mL [facility] Comment:Health Based Referen ce Values*< 20 ng/mL Pptjukpok48-23 ng/mL Insufficient> 30 ng/mL Sufficient*Gian VAZQUEZ. N [...] BLOOD ORDERABLES Final Result Performing Organization Address [facility] Co de Phone Number [facility] [address] [place] [phone] * TSH W/Reflex to FT4 (10/24/2024 1:30 PM EDT) Pathologist [facility] TSH reflex Free T4 1.14 0.32 - 4.0 uIU/mL [facility] Blood Venous blood specimen / Unknown 10/24/2024 1:30 PM EDT 10/24/2024 2:18 PM EDT us Juwan Bustos MD LAB BLOOD ORDERABLES Final Result Performing Organization Address [facility] de Phone Number [facility] [address] [place] [phone] * (ABNORMAL) CBC auto differential (10/24/2024 1:30 PM EDT) Pathologist [facility] White Blood Count 5.8 4.8 - 10.8 X10*3/uL [facility] Red Blood Count 5.31 4.60 - 5.80 X10*6/uL [facility] Hemoglobin 16.2 14.0 - 18.0 g/dl [facility] Hematocrit 44.7 42.0 - 52.0 % [facility] Mean Corpuscular Volume 84.2 80.0 - 98.0 fL [facility] Mean Corpuscular Hemoglobin 30.5 27.0 - 33.0 pg [facility] Mean Corpuscular HGB Conc 36.2(H) 31.0 - 36.0 g/dl [facility] Red Cell Distribution Width 11.9 11.0 - 16.0 % [facility] Platelet Count 285 160 - 400 X10*3/uL [facility] Mean Platelet Volume 10.3 9.4 - 12.4 fL [facility] Neutrophils Percent Auto 53.9 45 - 73 % [facility] Imm Gran Pct Auto 0.3 0.0 - 0.4 % [facility] Lymphocytes Percent Auto 32.6 20 - 40 % [facility] Monocytes Percent Auto 9.4 2 - 11 % [facility] Eosinophils Percent Auto 3.3 0 - 4 % [facility] Basophils Percent Auto 0.5 0 - 2 % [facility] NRBC Pct Auto 0.0 0.0 - 0.2 /100WBC [facility] Neutrophils Absolute Auto 3.1 2.0 - 8.3 x10*3/uL [facility] Imm Gran Abs Auto 0.02 0.00 - 0.03 X10*3/uL [facility] Lymphocytes Absolute Auto 1.9 1.2 - 4.9 X10*3/uL [facility] Monocytes Absolute Auto 0.5 0.1 - 1.2 X10*3/uL [facility] Eosinophils Absolute Auto 0.2 0.0 - 0.4 X10*3/uL [facility] Basophils Absolute Auto 0.0 0.0 - 0.2 X10*3/uL [facility] NRBC Abs Auto 0.000 0.0 - 0.012 X10*3/uL [facility] Blood Venous blood specimen / Unknown 10/24/2024 1:30 PM EDT 10/24/2024 2:18 PM EDT us Juwan Bustos MD LAB BLOOD ORDERABLES Final Result [facility] [address] [place] [phone] documented in this encounter Visit Diagnoses Diagnosis Primary hypertension- Primary Unspecified essential hypertension Other fatigue Dietary counseling Dietary surveillance and counseling Exercise counseling Class 3 severe obesity due to excess calories with serious comorbidity and body mass index (BMI) of 40.0 to 44.9 in adult (CMS/[facility]) documented in this encounter Care Teams Clinical Nurse Specialist Relationship Specialty Start Date End Date Meagan Frias MD [address] [place] [phone] PCP - General Family Medicine 04/24/23 documented as of this encounter
--- OUTSIDE RECORDS SUMMARY | 2024-10-25 13:13 | XMS_ITS | Encounter Summary ---
Author Organization [employer] Address [address] [facility] [address] [place] [address] Care Team Providers Care Airplane Pilot Name Role Phone Meagan Frias MD Primary Care Provider [phone] Encounter Details Date Type Department Care Team (Late st Contact Info) Description 05/01/2023 Abstract [facility]IC[facility] [address] [place], [place] [phone] Meagan Frias MD [address] [place], [place] [phone] Social History Tobacco Use Types Packs/Day Years [...] on filedocumented in this encounter Care Teams Airplane Pilot Relationship Specialty Start Date End Date Meagan Frias MD [address] [place], [place] [phone] PCP - General Family Medicine 04/24/23 documented as of this encounter
[2024-10-31 23:44] LABS: Testosterone, Total 441 ng/dL (250-1100)
== END 2024-10-25 10:51 | disposition home or self-care (01) ==
LOC: HO.CHCLDS 10:50
PROVIDERS: Visit Provider Internal Medicine
DX: I10 Essential (primary) hypertension (principal)
CPT/HCPCS: 36415; 84403